=== PATIENT | male | born 1965 | race Caucasian/White ===

== ENCOUNTER 2024-05-16 05:24 | Day surgery (SDC) | payer OTHER ==
[2024-05-08 10:19] LABS: HEMATOCRIT 42.2 % (39.0-48.0); HEMOGLOBIN 14.4 g/dL (13-16.00); MEAN CELL VOLUME 85.7 fL (80.0-100.00); MEAN CORPUSCULAR HEMOGLOBIN 29.3 pg (27.00-32.0); MEAN CORPUSCULAR HGB CONC 34.1 g/dl (32.0-36.0); PLATELET COUNT 225 K/uL (150-450); RED BLOOD COUNT 4.92 M/uL (4.00-6.00)
[2024-05-08 10:30] LABS: URINE APPEARANCE Clear; URINE BILIRRUBIN Negative (NEGATIVE); URINE BLOOD Negative; URINE COLOR Yellow; URINE GLUCOSE Negative (NEGATIVE); URINE LEUKOCYTE Negative; URINE NITRATE Negative; URINE PROTEIN Negative (NEGATIVE); URINE UROBILINOGEN 0.2 E.U./dl
[2024-05-08 10:35] LABS: URINE BACTERIA 13.8 uL (0.0-1933); URINE RBC 2.5 uL (0.0-20.8); URINE WBC 2.7 uL (0.0-23.2)
[2024-05-08 10:40] LABS: URINE EPITHELIAL CELLS 0.9 uL (0.0-38.8)
[2024-05-08 11:12] LABS: INR 1.08; PARTIAL THROMBOPLASTIN TIME 33.2 SECONDS (22.0-34.0); PROTHROMBIN TIME 11.3 SECONDS (9.0-11.5)
[2024-05-08 11:22] LABS: CALCIUM 9.2 mg/dL (8.5-10.1); CREATININE SERUM 0.87 mg/dL (0.70-1.30); GFR 90.13; POTASSIUM 4.5 mEq/L (3.5-5.1)
[2024-05-16] MEDS ORDERED: CEFAZOLIN SODIUM 1,000 MG VIAL ONE (09:46)
[2024-05-16] MEDS ORDERED: CEFAZOLIN SODIUM 1,000 MG VIAL IV SCH (11:00)
== END 2024-05-16 13:15 | disposition home or self-care (01) ==
LOC: CIR.AMB 05:24
PROVIDERS: ATTEND Surgery Surgery of the Hand
DX: M65.841 Other synovitis and tenosynovitis, right hand (principal); M65.331 Trigger finger, right middle finger; E03.9 Hypothyroidism, unspecified